=== PATIENT | female | born 1975 | race Caucasian/White ===

== ENCOUNTER 2022-02-05 16:50 | Emergency (ER) | payer OTHER ==
[2022-02-05] MEDS ORDERED: HYDROmorphone 1 MG/ML Syringe IM ONE (18:08)
== END 2022-02-05 19:39 | disposition home or self-care (01) ==
LOC: JP.ED 16:50
DX: S93.402A Sprain of unspecified ligament of left ankle, initial encounter (principal); Z79.899 Other long term (current) drug therapy; Z91.048 Other nonmedicinal substance allergy status; X50.0XXA Overexertion from strenuous movement or load, initial encounter
CPT/HCPCS: 73610-26-LT; 73610-LT; 73630-26-LT; 73630-LT; 99281; 99283-25